=== PATIENT | male | born 1955 | race Asian ===

== ENCOUNTER 2017-10-31 04:44 | Emergency (ER) | payer OTHER ==
[~2017-10-31] VITALS: Ht 165.1 cm; Wt 73.5 kg
[2017-10-31 05:00] VITALS: BP_SYST 143
[2017-10-31] MEDS ORDERED: NACL 0.9% 1,000 ML IV ONE (05:15)
[2017-10-31] MEDS ORDERED: METOCLOPRAMIDE HCL 10 MG/2 ML VIAL IVP ONE (05:15)
[2017-10-31] MEDS ORDERED: DIPHENHYDRAMINE INJ 50 MG/ML VIAL IVP ONE (05:15)
[2017-10-31 06:15] LABS: BASOPHILS # (AUTO) 0.1 K/uL (0.0-0.2); BASOPHILS % (AUTO) 0.9 % (0.0-2.0); EOSINOPHILS # (AUTO) 0.1 K/uL (0.0-0.4); EOSINOPHILS % (AUTO) 1.8 % (0.0-4.0); HEMOGLOBIN 11.6 g/dL (14.0-18.0); LYMPHOCYTES # (AUTO) 0.9 K/uL (1.0-5.5); LYMPHOCYTES % (AUTO) 11.1 % (20.5-51.5); MEAN CORPUSCULAR HEMOGLOBIN 32 pg (27-31); MEAN CORPUSCULAR HGB CONC 34 % (32-36); MEAN CORPUSCULAR VOLUME 93 fL (79.0-98.0); MONOCYTES # (AUTO) 0.9 K/uL (0.0-1.0); MONOCYTES % (AUTO) 10.5 % (1.7-9.3); NEUTROPHILS # (AUTO) 6.1 K/uL (1.8-7.7); NEUTROPHILS % (AUTO) 75.7 % (40.0-70.0); PLATELET COUNT (AUTO) 223 K/uL (130-430); RED BLOOD CELL COUNT(AUTO) 3.65 MIL/uL (4.2-6.2); RED CELL DISTRIBUTION WIDTH 11.9 % (9.0-15.0); WHITE BLOOD COUNT (AUTO) 8.1 K/uL (4.8-10.8)
[2017-10-31 06:19] LABS: ANION GAP 8 (5-15); CALCIUM 9.1 mg/dL (8.4-11.0); CHLORIDE 103 mmol/L (98-107); CREATININE 1.02 mg/dL (0.55-1.30); GLUCOSE 146 mg/dL (70-99); POTASSIUM 3.3 mmol/L (3.5-5.1); SODIUM SERUM 136 mmol/L (136-145); UREA NITROGEN, BLOOD 9 mg/dL (8-21)
[2017-10-31 06:32] LABS: ALANINE AMINOTRANSFERASE 34 U/L (12-78); ALBUMIN 3.4 g/dL (3.4-4.8); ASPARTATE AMINOTRANSFERASE 25 U/L (10-37)
[2017-10-31 06:55] VITALS: BP_SYST 140
[2017-10-31 07:25] LABS: ERYTHROCYTE SEDIMENTATION RATE 93 MM/HR (0-15)
== END 2017-10-31 06:55 | disposition home or self-care (01) ==
LOC: SED 04:44
DX: R51 Headache (principal); I10 Essential (primary) hypertension; K21.9 Gastro-esophageal reflux disease without esophagitis; E78.5 Hyperlipidemia, unspecified
CPT/HCPCS: 36415; 70450; 80053; 83605; 85025; 85651; 87040; 96374; 96375; 99285; J1200; J2765; J7030

== ENCOUNTER 2017-10-31 20:35 | Emergency (ER) | payer OTHER ==
[~2017-10-31] VITALS: Ht 165.1 cm; Wt 73.5 kg
[2017-10-31 20:36] VITALS: BP_SYST 143
== END 2017-10-31 21:16 | disposition left against medical advice (07) ==
LOC: SED 20:35
DX: R50.9 Fever, unspecified (principal); Z53.21 Procedure and treatment not carried out due to patient leaving prior to being seen by health care provider

== ENCOUNTER 2017-11-02 02:38 | Inpatient (IN) | payer OTHER ==
[~2017-11-02] VITALS: Ht 165.1 cm; Wt 76.7 kg
[2017-11-02] VITALS (7 sets, daily range): BP systolic 133–144
[2017-11-02] MEDS ORDERED: ALBUTEROL SULFATE 0.083% 2.5 MG/3 ML VIAL.NEB IH ONE (03:45)
[2017-11-02] MEDS ORDERED: cefTRIAXone 1 GM IVPB PREMIX 50 ML IV ONE (03:45)
[2017-11-02] MEDS ORDERED: IPRATROPIUM BROM 0.5 MG/2.5 ML VIAL.NEB (ATROVENT) IH ONE (03:45)
[2017-11-02] MEDS ORDERED: AZITHROMYCIN 500 MG in NS 250 ML IV ONE (03:45)
[2017-11-02] MEDS ORDERED: methylPREDNISolone SOD SUCC/PF 62.5 MG/ML VIAL IVP ONE (03:45)
[2017-11-02 04:57] LABS: BASOPHILS % (AUTO) 0.3 % (0.0-2.0); EOSINOPHILS # (AUTO) 0.2 K/uL (0.0-0.4); EOSINOPHILS % (AUTO) 1.4 % (0.0-4.0); HEMATOCRIT 32.1 % (36-54); HEMOGLOBIN 11.3 g/dL (14.0-18.0); LYMPHOCYTES # (AUTO) 0.9 K/uL (1.0-5.5); LYMPHOCYTES % (AUTO) 8.1 % (20.5-51.5); MEAN CORPUSCULAR HEMOGLOBIN 32 pg (27-31); MEAN CORPUSCULAR HGB CONC 35 % (32-36); MEAN CORPUSCULAR VOLUME 92 fL (79.0-98.0); MONOCYTES # (AUTO) 1.1 K/uL (0.0-1.0); MONOCYTES % (AUTO) 10.1 % (1.7-9.3); NEUTROPHILS # (AUTO) 9.1 K/uL (1.8-7.7); NEUTROPHILS % (AUTO) 80.1 % (40.0-70.0); PLATELET COUNT (AUTO) 238 K/uL (130-430); RED BLOOD CELL COUNT(AUTO) 3.49 MIL/uL (4.2-6.2); RED CELL DISTRIBUTION WIDTH 12.3 % (9.0-15.0); WHITE BLOOD COUNT (AUTO) 11.3 K/uL (4.8-10.8)
[2017-11-02] MEDS ORDERED: AZITHROMYCIN 500 MG/VIAL (ZITHROMAX) IV ONE (05:08)
[2017-11-02] MEDS ORDERED: OMEP40CA33 PO (05:11)
[2017-11-02] MEDS ORDERED: LISI10TA PO (05:11)
[2017-11-02] MEDS ORDERED: GABA-531 PO (05:12)
[2017-11-02] MEDS ORDERED: FENO145T PO (05:13)
[2017-11-02] MEDS ORDERED: CHOL4PAC20 PO (05:13)
[2017-11-02] MEDS ORDERED: ZOLP10TA2 PO (05:14)
[2017-11-02 05:15] LABS: CREATININE 1.08 mg/dL (0.55-1.30); POTASSIUM 3.2 mmol/L (3.5-5.1)
[2017-11-02] MEDS ORDERED: CHOL100035 PO (05:15)
[2017-11-02] MEDS ORDERED: L.RH1CAP PO (05:16)
[2017-11-02] MEDS ORDERED: ACYC800T PO (05:17)
[2017-11-02] MEDS ORDERED: NAPR-1172 PO (05:18)
[2017-11-02 05:20] LABS: ALBUMIN 2.7 g/dL (3.4-4.8); TOTAL BILIRUBIN 1.3 mg/dL (0.0-1.0)
[2017-11-02] MEDS ORDERED: ACETAMINOPHEN 325 MG TABLET PO PRN (05:30)
[2017-11-02] MEDS: IPRATROPIUM/ALBUTEROL SULFATE 3 ML AMPUL.NEB INH SCH ×2 (07:00→11:09)
[2017-11-02] MEDS ORDERED: BENZONATATE 100 MG CAPSULE (TESSALON) PO ONE (10:00)
[2017-11-02] MEDS ORDERED: methylPREDNISolone SOD SUCC 40 MG/ML VIAL IVP ONE (10:15)
[2017-11-02] MEDS: BENZONATATE 100 MG CAPSULE (TESSALON) PO SCH ×2 (14:54→20:34)
[2017-11-02] MEDS: VANCOMYCIN HCL 750 MG in NS 250 ML IV SCH (14:55)
[2017-11-02] MEDS ORDERED: GABAPENTIN 300 MG CAPSULE PO ONE (15:45)
[2017-11-02] MEDS ORDERED: OMEPRAZOLE 20 MG CAPSULE.DR (PriLOSEC) PO ONE (15:45)
[2017-11-02] MEDS ORDERED: CHOLESTYRAMINE/SUCROSE 4 GM/PACKET PO ONE (15:45)
[2017-11-02] MEDS ORDERED: CHOLECALCIFEROL (VITAMIN D3) 2,000 UNIT TABLET PO ONE (16:00)
[2017-11-02] MEDS ORDERED: LACTOBACILLUS RHAMNOSUS GG 1 CAP CAPSULE PO ONE (16:00)
[2017-11-02] MEDS ORDERED: LISINOPRIL 10 MG TABLET (PRINIVIL) PO ONE (16:00)
[2017-11-02] MEDS ORDERED: FENOFIBRATE NANOCRYSTALLIZED 48 MG TABLET (TRICOR) PO ONE (16:00)
[2017-11-02] MEDS: NAPROXEN 250 MG TABLET PO ONE ×2 (16:26→16:36)
[2017-11-02] MEDS: ALBUTEROL SULFATE 0.083% 2.5 MG/3 ML VIAL.NEB INH SCH (19:36)
[2017-11-02] MEDS: BUDESONIDE 0.5 MG/2 ML AMPUL.NEB INH SCH (19:50)
[2017-11-02] MEDS: methylPREDNISolone SOD SUCC 40 MG/ML VIAL IVP SCH (20:33)
[2017-11-02] MEDS: LINEZOLID 300 ML IV SCH (20:34)
[2017-11-02] MEDS: ZOLPIDEM TARTRATE 5 MG TABLET PO PRN (20:36)
[2017-11-02] MEDS ORDERED: NAPROXEN 250 MG TABLET PO SCH (21:00)
[2017-11-03] MEDS: VANCOMYCIN HCL 750 MG in NS 250 ML IV SCH (00:04)
[2017-11-03 00:54] VITALS: BP_SYST 129
[2017-11-03] MEDS: cefTRIAXone 1 GM IVPB PREMIX 50 ML IV SCH (05:04)
[2017-11-03] MEDS: AZITHROMYCIN 500 MG in NS 250 ML IV SCH (05:44)
[2017-11-03] MEDS: IPRATROPIUM/ALBUTEROL SULFATE 3 ML AMPUL.NEB INH SCH (07:00)
[2017-11-03] MEDS: ALBUTEROL SULFATE 0.083% 2.5 MG/3 ML VIAL.NEB INH SCH ×2 (07:00→19:32)
[2017-11-03 07:09] LABS: CALCIUM 9.5 mg/dL (8.4-11.0); CREATININE 1.05 mg/dL (0.55-1.30); POTASSIUM 3.9 mmol/L (3.5-5.1)
[2017-11-03 07:24] LABS: BASOPHILS % (AUTO) 0.3 % (0.0-2.0); EOSINOPHILS % (AUTO) 0.1 % (0.0-4.0); LYMPHOCYTES # (AUTO) 1.2 K/uL (1.0-5.5); LYMPHOCYTES % (AUTO) 8.7 % (20.5-51.5); MEAN CORPUSCULAR HEMOGLOBIN 32 pg (27-31); MEAN CORPUSCULAR HGB CONC 35 % (32-36); MEAN CORPUSCULAR VOLUME 92 fL (79.0-98.0); MONOCYTES # (AUTO) 0.9 K/uL (0.0-1.0); MONOCYTES % (AUTO) 6.2 % (1.7-9.3); NEUTROPHILS # (AUTO) 11.8 K/uL (1.8-7.7); NEUTROPHILS % (AUTO) 84.7 % (40.0-70.0); PLATELET COUNT (AUTO) 330 K/uL (130-430); RED BLOOD CELL COUNT(AUTO) 3.47 MIL/uL (4.2-6.2); RED CELL DISTRIBUTION WIDTH 12.1 % (9.0-15.0); WHITE BLOOD COUNT (AUTO) 13.9 K/uL (4.8-10.8)
[2017-11-03 08:00] VITALS: BP_SYST 107
[2017-11-03 08:10] LABS: ERYTHROCYTE SEDIMENTATION RATE 99 MM/HR (0-15)
[2017-11-03] MEDS: BUDESONIDE 0.5 MG/2 ML AMPUL.NEB INH SCH ×2 (09:05→19:49)
[2017-11-03] MEDS: CHOLESTYRAMINE/SUCROSE 4 GM/PACKET PO SCH (09:46)
[2017-11-03] MEDS: methylPREDNISolone SOD SUCC 40 MG/ML VIAL IVP SCH (09:47)
[2017-11-03] MEDS: FENOFIBRATE NANOCRYSTALLIZED 48 MG TABLET (TRICOR) PO SCH (09:48)
[2017-11-03] MEDS: LINEZOLID 300 ML IV SCH ×2 (09:48→21:19)
[2017-11-03] MEDS: OMEPRAZOLE 20 MG CAPSULE.DR (PriLOSEC) PO SCH (09:49)
[2017-11-03] MEDS: BENZONATATE 100 MG CAPSULE (TESSALON) PO SCH ×3 (09:49→21:19)
[2017-11-03] MEDS: CHOLECALCIFEROL (VITAMIN D3) 2,000 UNIT TABLET PO SCH (09:49)
[2017-11-03] MEDS: LACTOBACILLUS RHAMNOSUS GG 1 CAP CAPSULE PO SCH (09:49)
[2017-11-03] MEDS: LISINOPRIL 10 MG TABLET (PRINIVIL) PO SCH (09:50)
[2017-11-03] MEDS: GABAPENTIN 300 MG CAPSULE PO SCH (09:50)
[2017-11-03 12:15] VITALS: BP_SYST 125
[2017-11-03] MEDS ORDERED: DEXTROSE 50% JECT 50 ML DISP.SYRIN IVP PRN (15:00)
[2017-11-03 16:10] VITALS: BP_SYST 131
[2017-11-03] MEDS: INSULIN REGULAR, HUMAN 100 UNITS/ML, 10 ML VIAL (novoLIN R) SUBCUT PRN ×2 (17:22→21:20)
[2017-11-03 20:00] VITALS: BP_SYST 122
[2017-11-03] MEDS: PREDNISONE 20 MG TABLET PO SCH (21:19)
[2017-11-03] MEDS: ZOLPIDEM TARTRATE 5 MG TABLET PO PRN (21:30)
[2017-11-04 00:14] VITALS: BP_SYST 130
[2017-11-04] MEDS: cefTRIAXone 1 GM IVPB PREMIX 50 ML IV SCH (05:08)
[2017-11-04] MEDS: AZITHROMYCIN 500 MG in NS 250 ML IV SCH (06:01)
[2017-11-04] MEDS: INSULIN REGULAR, HUMAN 100 UNITS/ML, 10 ML VIAL (novoLIN R) SUBCUT PRN ×3 (06:02→20:57)
[2017-11-04] MEDS: BUDESONIDE 0.5 MG/2 ML AMPUL.NEB INH SCH ×2 (08:05→19:54)
[2017-11-04] MEDS: ALBUTEROL SULFATE 0.083% 2.5 MG/3 ML VIAL.NEB INH SCH ×2 (08:05→19:54)
[2017-11-04 08:18] VITALS: BP_SYST 142
[2017-11-04] MEDS: LACTOBACILLUS RHAMNOSUS GG 1 CAP CAPSULE PO SCH (09:46)
[2017-11-04] MEDS: LISINOPRIL 10 MG TABLET (PRINIVIL) PO SCH (09:46)
[2017-11-04] MEDS: PREDNISONE 20 MG TABLET PO SCH ×2 (09:46→20:58)
[2017-11-04] MEDS: GABAPENTIN 300 MG CAPSULE PO SCH (09:46)
[2017-11-04] MEDS: CHOLECALCIFEROL (VITAMIN D3) 2,000 UNIT TABLET PO SCH (09:46)
[2017-11-04] MEDS: BENZONATATE 100 MG CAPSULE (TESSALON) PO SCH ×3 (09:46→20:58)
[2017-11-04] MEDS: OMEPRAZOLE 20 MG CAPSULE.DR (PriLOSEC) PO SCH (09:47)
[2017-11-04] MEDS: FENOFIBRATE NANOCRYSTALLIZED 48 MG TABLET (TRICOR) PO SCH (09:47)
[2017-11-04] MEDS: LINEZOLID 300 ML IV SCH ×2 (09:47→20:59)
[2017-11-04] MEDS: CHOLESTYRAMINE/SUCROSE 4 GM/PACKET PO SCH (09:47)
[2017-11-04 12:45] VITALS: BP_SYST 145
[2017-11-04] MEDS ORDERED: LOPERAMIDE HCL 2 MG CAPSULE PO PRN (15:00)
[2017-11-04 16:08] VITALS: BP_SYST 156
[2017-11-04 20:00] VITALS: BP_SYST 148
[2017-11-04] MEDS: ZOLPIDEM TARTRATE 5 MG TABLET PO PRN (21:04)
[2017-11-05] VITALS: BP_SYST 145
[2017-11-05] MEDS: cefTRIAXone 1 GM IVPB PREMIX 50 ML IV SCH (05:21)
[2017-11-05] MEDS: AZITHROMYCIN 500 MG in NS 250 ML IV SCH (06:06)
[2017-11-05] MEDS: INSULIN REGULAR, HUMAN 100 UNITS/ML, 10 ML VIAL (novoLIN R) SUBCUT PRN ×3 (06:08→17:15)
[2017-11-05] MEDS: ALBUTEROL SULFATE 0.083% 2.5 MG/3 ML VIAL.NEB INH SCH ×2 (07:00→20:06)
[2017-11-05] MEDS: BUDESONIDE 0.5 MG/2 ML AMPUL.NEB INH SCH ×2 (07:00→20:13)
[2017-11-05 08:02] VITALS: BP_SYST 133
[2017-11-05 08:21] LABS: CALCIUM 9.1 mg/dL (8.4-11.0); CREATININE 1.03 mg/dL (0.55-1.30); POTASSIUM 3.6 mmol/L (3.5-5.1)
[2017-11-05 08:37] LABS: BASOPHILS % (AUTO) 0.4 % (0.0-2.0); EOSINOPHILS % (AUTO) 0.2 % (0.0-4.0); HEMATOCRIT 32.9 % (36-54); HEMOGLOBIN 11.1 g/dL (14.0-18.0); LYMPHOCYTES # (AUTO) 1.7 K/uL (1.0-5.5); LYMPHOCYTES % (AUTO) 16.1 % (20.5-51.5); MEAN CORPUSCULAR HEMOGLOBIN 31 pg (27-31); MEAN CORPUSCULAR HGB CONC 34 % (32-36); MEAN CORPUSCULAR VOLUME 92 fL (79.0-98.0); MONOCYTES # (AUTO) 0.9 K/uL (0.0-1.0); MONOCYTES % (AUTO) 8.7 % (1.7-9.3); NEUTROPHILS # (AUTO) 7.8 K/uL (1.8-7.7); NEUTROPHILS % (AUTO) 74.6 % (40.0-70.0); PLATELET COUNT (AUTO) 408 K/uL (130-430); RED BLOOD CELL COUNT(AUTO) 3.58 MIL/uL (4.2-6.2); RED CELL DISTRIBUTION WIDTH 12.1 % (9.0-15.0); WHITE BLOOD COUNT (AUTO) 10.4 K/uL (4.8-10.8)
[2017-11-05] MEDS: OMEPRAZOLE 20 MG CAPSULE.DR (PriLOSEC) PO SCH (09:46)
[2017-11-05] MEDS: GABAPENTIN 300 MG CAPSULE PO SCH (09:47)
[2017-11-05] MEDS: LISINOPRIL 10 MG TABLET (PRINIVIL) PO SCH (09:47)
[2017-11-05] MEDS: PREDNISONE 20 MG TABLET PO SCH ×2 (09:48→21:42)
[2017-11-05] MEDS: LACTOBACILLUS RHAMNOSUS GG 1 CAP CAPSULE PO SCH (09:48)
[2017-11-05] MEDS: CHOLECALCIFEROL (VITAMIN D3) 2,000 UNIT TABLET PO SCH (09:49)
[2017-11-05] MEDS: BENZONATATE 100 MG CAPSULE (TESSALON) PO SCH ×3 (09:51→21:42)
[2017-11-05] MEDS: FENOFIBRATE NANOCRYSTALLIZED 48 MG TABLET (TRICOR) PO SCH (09:51)
[2017-11-05] MEDS: CHOLESTYRAMINE/SUCROSE 4 GM/PACKET PO SCH (09:52)
[2017-11-05] MEDS: LINEZOLID 300 ML IV SCH ×2 (09:53→21:42)
[2017-11-05 12:00] VITALS: BP_SYST 137
[2017-11-05 16:19] VITALS: BP_SYST 134
[2017-11-05] MEDS: LEVOFLOXACIN 500 MG/D5W 100 ML IV SCH (17:09)
[2017-11-05 20:07] VITALS: BP_SYST 113; BP_SYST 131
[2017-11-05] MEDS: ZOLPIDEM TARTRATE 5 MG TABLET PO PRN (21:42)
[2017-11-06] VITALS (7 sets, daily range): BP systolic 133–144
[2017-11-06] MEDS: cefTRIAXone 1 GM IVPB PREMIX 50 ML IV SCH (05:15)
[2017-11-06] MEDS: INSULIN REGULAR, HUMAN 100 UNITS/ML, 10 ML VIAL (novoLIN R) SUBCUT PRN ×2 (06:20→16:01)
[2017-11-06] MEDS: BUDESONIDE 0.5 MG/2 ML AMPUL.NEB INH SCH ×2 (07:00→21:01)
[2017-11-06] MEDS: ALBUTEROL SULFATE 0.083% 2.5 MG/3 ML VIAL.NEB INH SCH ×2 (07:00→21:00)
[2017-11-06] MEDS: OMEPRAZOLE 20 MG CAPSULE.DR (PriLOSEC) PO SCH (09:33)
[2017-11-06] MEDS: LINEZOLID 300 ML IV SCH ×2 (09:33→21:22)
[2017-11-06] MEDS: FENOFIBRATE NANOCRYSTALLIZED 48 MG TABLET (TRICOR) PO SCH (09:33)
[2017-11-06] MEDS: CHOLESTYRAMINE/SUCROSE 4 GM/PACKET PO SCH (09:33)
[2017-11-06] MEDS: BENZONATATE 100 MG CAPSULE (TESSALON) PO SCH ×3 (09:34→21:24)
[2017-11-06] MEDS: PREDNISONE 20 MG TABLET PO SCH ×2 (09:34→21:23)
[2017-11-06] MEDS: GABAPENTIN 300 MG CAPSULE PO SCH (09:34)
[2017-11-06] MEDS: CHOLECALCIFEROL (VITAMIN D3) 2,000 UNIT TABLET PO SCH (09:34)
[2017-11-06] MEDS: LACTOBACILLUS RHAMNOSUS GG 1 CAP CAPSULE PO SCH (09:34)
[2017-11-06] MEDS: LISINOPRIL 10 MG TABLET (PRINIVIL) PO SCH (09:35)
[2017-11-06] MEDS: LEVOFLOXACIN 500 MG/D5W 100 ML IV SCH (16:00)
[2017-11-06] MEDS: ZOLPIDEM TARTRATE 5 MG TABLET PO PRN (21:25)
[2017-11-07 00:20] VITALS: BP_SYST 116
[2017-11-07] MEDS: cefTRIAXone 1 GM IVPB PREMIX 50 ML IV SCH (05:10)
[2017-11-07] MEDS: INSULIN REGULAR, HUMAN 100 UNITS/ML, 10 ML VIAL (novoLIN R) SUBCUT PRN (05:27)
[2017-11-07] MEDS: ALBUTEROL SULFATE 0.083% 2.5 MG/3 ML VIAL.NEB INH SCH (07:20)
[2017-11-07] MEDS: BUDESONIDE 0.5 MG/2 ML AMPUL.NEB INH SCH (07:21)
[2017-11-07 08:09] VITALS: BP_SYST 130
[2017-11-07] MEDS: OMEPRAZOLE 20 MG CAPSULE.DR (PriLOSEC) PO SCH (09:00)
[2017-11-07] MEDS: CHOLESTYRAMINE/SUCROSE 4 GM/PACKET PO SCH (09:00)
[2017-11-07] MEDS: LACTOBACILLUS RHAMNOSUS GG 1 CAP CAPSULE PO SCH (09:00)
[2017-11-07] MEDS: CHOLECALCIFEROL (VITAMIN D3) 2,000 UNIT TABLET PO SCH (09:00)
[2017-11-07] MEDS: LISINOPRIL 10 MG TABLET (PRINIVIL) PO SCH (09:00)
[2017-11-07] MEDS: GABAPENTIN 300 MG CAPSULE PO SCH (09:00)
[2017-11-07] MEDS: BENZONATATE 100 MG CAPSULE (TESSALON) PO SCH ×2 (09:00→15:29)
[2017-11-07] MEDS: FENOFIBRATE NANOCRYSTALLIZED 48 MG TABLET (TRICOR) PO SCH (09:00)
[2017-11-07] MEDS: LINEZOLID 300 ML IV SCH (09:01)
[2017-11-07 12:00] VITALS: BP_SYST 135
[2017-11-07 16:23] VITALS: BP_SYST 138
[2017-11-07] MEDS: LEVOFLOXACIN 500 MG/D5W 100 ML IV SCH (17:24)
[2017-11-07 17:41] VITALS: BP_SYST 138
== END 2017-11-07 18:44 | disposition home or self-care (01) | DRG 177 ==
LOC: SED 02:38 → STU 05:22 → SMU 11-04 19:01
PROVIDERS: ADMIT Internal Medicine; ATTEND Internal Medicine
DX: J85.0 Gangrene and necrosis of lung (principal); J12.89 Other viral pneumonia; J44.1 Chronic obstructive pulmonary disease with (acute) exacerbation; J44.0 Chronic obstructive pulmonary disease with (acute) lower respiratory infection; E44.0 Moderate protein-calorie malnutrition; I10 Essential (primary) hypertension; E78.5 Hyperlipidemia, unspecified; I25.10 Atherosclerotic heart disease of native coronary artery without angina pectoris; R09.02 Hypoxemia; D64.9 Anemia, unspecified; R73.9 Hyperglycemia, unspecified; R76.11 Nonspecific reaction to tuberculin skin test without active tuberculosis; T38.0X5A Adverse effect of glucocorticoids and synthetic analogues, initial encounter; Y92.89 Other specified places as the place of occurrence of the external cause; Z79.899 Other long term (current) drug therapy; Z86.11 Personal history of tuberculosis; Z87.891 Personal history of nicotine dependence; Z68.28 Body mass index [BMI] 28.0-28.9, adult
CPT/HCPCS: 36415; 71045; 71250-TC; 80048; 80053; 82550-TC; 82962; 83880; 85025; 85651-TC; 86480; 86635; 87040-TC; 87070-TC; 87116; 87205-TC; 87899; 94640; 94760; 96365; 96367; 96375; 99285; J0456; J0696; J1030; J1815; J1956; J2020; J2930; J3370; J7050; J7512; J7613; J7620; J7626